=== PATIENT | female | born 1955 | race African-American/Black ===

== ENCOUNTER 2020-01-18 12:08 | Inpatient (IN) | payer OTHER, SELFPAY ==
[2020-01-18] MEDS ORDERED: ACETAMINOPHEN 325 MG TAB PO ONE (12:25)
[2020-01-18 13:44] LABS: Basophils % (Auto) 0.2 % (0.0-1.8); Eosinophils % (Auto) 0.6 % (0.0-4.3); Hematocrit 41.8 % (30.3-42.9); Hemoglobin 13.9 gm/dl (10.1-14.3); Lymphocytes # (Auto) 0.5 K/mm3 (1.2-5.4); Lymphocytes % (Auto) 7.1 % (13.4-35.0); Mean Corpuscular HGB Conc 33 % (30-34); Mean Corpuscular Volume 80 fl (79-97); Monocytes # (Auto) 0.4 K/mm3 (0.0-0.8); Platelet Count 348 K/mm3 (140-440); Red Blood Count 5.26 M/mm3 (3.65-5.03); Red Cell Distribution Width 12.9 % (13.2-15.2)
[2020-01-18 14:01] LABS: Alanine Aminotransferase 31 units/L (7-56); BUN/Creatinine Ratio 18; Blood Urea Nitrogen 14 mg/dL (7-17); Calcium 8.1 mg/dL (8.4-10.2); Hemolysis Index 12
--- NOTE | 2020-01-18 14:05 | XRay Report ---
CHEST 1 VIEW INDICATION / CLINICAL INFORMATION: hypoxia. COMPARISON: None available. FINDINGS: SUPPORT DEVICES: None. HEART / MEDIASTINUM: No significant abnormality. LUNGS / PLEURA: Scattered diffuse bilateral pulmonary opacities are noted. No pleural effusions. No p neumothorax. ADDITIONAL FINDINGS: No significant additional findings. IMPRESSION: 1. Scattered diffuse bilateral pulmonary opacities are noted. Infectious process leads the differenti al. Signer Name: Ozzy Nicole MD Signed: 01/18/2020 2:00 PM Workstation Name: [id number]
[2020-01-18] MEDS ORDERED: cefTRIAXone/NS 1 GM/50 ML 1 GM/50 ML BAG IV ONE (14:27)
[2020-01-18] MEDS ORDERED: dexAMETHasone 20 MG/5 ML VIAL IV ONE (14:27)
--- NOTE | 2020-01-18 14:36 | Emergency Department Report ---
HPI - General Chief Complaint: Dyspnea/Respdistress Time Seen by Provider: 01/18/20 12:13 - HPI HPI: This is a 64-year-old Tajik female who presents to the emergency department via EMS from home with complaint of shortness of breath and cough and was found to have low oxygen saturation. The patient has been having a mixed dry and productive cough for the past 10 days. Over the past 1 to 2 days the patient started having some shortness of breath that worsens with exertion. She denies any fever, chest pain, lower extremity swelling, but does complain of some increased fatigue. No recent travel or sick contacts at home. No known exposure to anyone with COVID-19. Patient does not speak much Bangladeshi so nurse Abby translated for us. EMS found the patient to have a low oxygen saturation at home and placed the patient on a nonrebreather. We once again tested the patient on room air here during triage and the patient was 84% oxygen satura tion. ED Past Medical Hx - Past Medical History Previous Medical History?: No - Surgical History Past Surgical History?: No - Social History Smoking Status: Unknown if ever smoked Substance Use Type: None ED Review of Systems ROS: Stated complaint: Other details as noted in HPI Comment: All other systems reviewed and negative Constitutional: other (fatigue). denies: fever Eyes: denies: eye pain, vision change ENT: denies: ear pain, throat pain Respiratory: cough, shortness of breath Cardiovascular: denies: chest pain, edema Gastrointestinal: denies: abdominal pain, vomiting Genitourinary: denies: dysuria, discharge Musculoskeletal: denies: back pain, joint swelling Skin: denies: rash, lesions Neurological: denies: headache, numbness Physical Exam - Physical Exam Vital Signs: Vital Signs 01/18/20 01/18/20 12:20 12:25 Temperature 99.3 F Pulse Rate 107 H Respiratory 20 20 Rate Blood Pressure 117/77 [Right] O2 Sat by Pulse 84 94 Oximetry Physical Exam: GENERAL: The patient is well-developed well-nourished. HENT: Normocephalic. Atraumatic. Patient has moist mucous membranes. EYES: Extraocular motions are intact. NECK: Supple. Trachea is midline. CHEST/LUNGS: A productive cough heard during examination. There is tachypnea. HEART/CARDIOVASCULAR: There is mild tachycardia. ABDOMEN: Abdomen is soft, nontender. There is no abdominal distention. SKIN: Skin is warm and dry. NEURO: The patient is awake, alert, and cooperative. The patient has no focal neurologic deficits. Normal speech. MUSCULOSKELETAL: There is no tenderness or deformity. There is no limitation range of motion. ED Course Vital Signs 01/18/20 01/18/20 12:20 12:25 Temperature 99.3 F Pulse Rate 107 H Respiratory 20 20 Rate Blood Pressure 117/77 [Right] O2 Sat by Pulse 84 94 Oximetry - Reevaluation(s) Reevaluation #1: 01/18/20 16:11 Lab Results 01/18/20 01/18/20 01/18/20 Range/Units 13:01 13:01 14:15 WBC 6.9 (4.5-11.0) K/mm3 RBC 5.26 H (3.65-5.03) M/mm3 Hgb 13.9 (10.1-14.3) gm/dl Hct 41.8 (30.3-42.9) % MCV 80 (79-97) fl MCH 26 L (28-32) pg MCHC 33 (30-34) % RDW 12.9 L (13.2-15.2) % Plt Count 348 (140-440) K/mm3 Lymph % (Auto) 7.1 L (13.4-35.0) % [place] % (Auto) 6.0 (0.0-7.3) % Eos % (Auto) 0.6 (0.0-4.3) % Baso % (Auto) 0.2 (0.0-1.8) % Lymph # (Auto) 0.5 L (1.2-5.4) K/mm3 [place] # (Auto) 0.4 (0.0-0.8) K/mm3 Eos # (Auto) 0.0 (0.0-0.4) K/mm3 Baso # (Auto) 0.0 (0.0-0.1) K/mm3 Seg Neutrophils % 86.1 H (40.0-70.0) % Seg Neutrophils # 6.0 (1.8-7.7) K/mm3 D-Dimer (0-234) ng/mlDDU Sodium 135 L (137-145) mmol/L Potassium 3.6 (3.6-5.0) mmol/L Chloride 98.9 (98-107) mmol/L Carbon Dioxide 23 (22-30) mmol/L Anion Gap 17 mmol/L BUN 14 (7-17) mg/dL Creatinine 0.8 (0.6-1.2) mg/dL Estimated GFR > 60 ml/min BUN/Creatinine Ratio 18 % Glucose 190 H (65-100) mg/dL Calcium 8.1 L (8.4-10.2) mg/dL Ferritin (10.0-200.0) ng/mL Total Bilirubin 0.60 (0.1-1.2) mg/dL AST 45 H (5-40) units/L ALT 31 (7-56) units/L Alkaline Phosphatase 86 (35-129) units/L Lactate Dehydrogenase (91-180) units/L Troponin T < 0.010 (0.00-0.029) ng/mL C-Reactive Protein (0.00-1.30) mg/dL NT-Pro-B Natriuret Pep 50.47 (0-900) pg/mL Total Protein 7.1 (6.3-8.2) g/dL Albumin 3.0 L (3.9-5) g/dL Albumin/Globulin Ratio 0.7 % 01/18/20 01/18/20 01/18/20 Range/Units 14:15 14:15 14:15 WBC (4.5-11.0) K/mm3 RBC (3.65-5.03) M/mm3 Hgb (10.1-14.3) gm/dl Hct (30.3-42.9) % MCV (79-97) fl MCH (28-32) pg MCHC (30-34) % RDW (13.2-15.2) % Plt Count (140-440) K/mm3 Lymph % (Auto) (13.4-35.0) % [place] % (Auto) (0.0-7.3) % Eos % (Auto) (0.0-4.3) % Baso % (Auto) (0.0-1.8) % Lymph # (Auto) (1.2-5.4) K/mm3 [place] # (Auto) (0.0-0.8) K/mm3 Eos # (Auto) (0.0-0.4) K/mm3 Baso # (Auto) (0.0-0.1) K/mm3 Seg Neutrophils % (40.0-70.0) % Seg Neutrophils # (1.8-7.7) K/mm3 D-Dimer 754.44 H (0-234) ng/mlDDU Sodium (137-145) mmol/L Potassium (3.6-5.0) mmol/L Chloride (98-107) mmol/L Carbon Dioxide (22-30) mmol/L Anion Gap mmol/L BUN (7-17) mg/dL Creatinine (0.6-1.2) mg/dL Estimated GFR ml/min BUN/Creatinine Ratio % Glucose 127 H (65-100) mg/dL Calcium (8.4-10.2) mg/dL Ferritin 1542.0 H (10.0-200.0) ng/mL Total Bilirubin (0.1-1.2) mg/dL AST (5-40) units/L ALT (7-56) units/L Alkaline Phosphatase (35-129) units/L Lactate Dehydrogenase 608 H (91-180) units/L Troponin T (0.00-0.029) ng/mL C-Reactive Protein 7.80 H (0.00-1.30) mg/dL NT-Pro-B Natriuret Pep (0-900) pg/mL Total Protein (6.3-8.2) g/dL Albumin (3.9-5) g/dL Albumin/Globulin Ratio % ED Medical Decision Making - Lab Data Result diagrams: 01/18/20 13:01 01/18/20 14:15 - Radiology Data Radiology results: image reviewed interpreted by me: Chest x-ray has bilateral patchy infiltrates concerning for pneumonia. - Medical Decision Making This patient presents with a lingering cough and now a few days of shortness of breath that worsens on exertion. Patient was found to be hypoxic on room air at 84%. She was placed on a nonrebreather and improved into the mid to high 90s. We will titrate back to a Venturi mask or nasal cannula. Chest x-ray shows bilateral patchy infiltrates concerning for pneumonia. Patient's labs shows no leukocytosis but there is lymphopenia. Patient has elevated inflammatory markers such as D-dimer, CRP, LDH and ferritin. All this together appears concerning for COVID-19. The patient has been in droplet precautions and patient isolation since arrival to the emergency department. She will be admitted to the hospital for further evaluation and treatment and was accepted for admission by the hospitalist, Dr. Hooper. Critical Care Time: Yes Critical care time in (mins) excluding proc time.: 35 Critical care attestation.: If time is entered above; I have spent that time in minutes in the direct care of this critically ill patient, excluding procedure time. Critical care time was spent on this patient in doing her initial evaluation, multiple reevaluati ons, ordering and interpretation of labs and imaging, treatment of her pneumonia with IV antibiotics, oxygen supplementation for the hypoxemia, discussion with the hospitalist service. Critical Care Time: 35 minutes ED Disposition Clinical Impression: Suspected 2019 novel coronavirus infection, Hypoxemia Pneumonia Qualifiers: Pneumonia type: due to unspecified organism Laterality: bilateral Lung location: unspecified part of lung Qualified Code(s): J18.9 - Pneumonia, unspecified organism Disposition: 09 OP ADMIT IP TO THIS HOSP Is pt being admited?: Yes Condition: Serious Time of Disposition: 14:57
[2020-01-18] MEDS ORDERED: AZITHROMYCIN 500 MG in SODIUM CHLORIDE 0.9% 250ML 250 ML IV ONE (15:00)
[2020-01-18 15:26] LABS: C-Reactive Protein 7.8 mg/dL (0.00-1.30)
--- NOTE | 2020-01-18 16:50 | History and Physical Report ---
History of Present Illness Date of examination: 01/18/20 Date of admission: 01/18/20 14:58 Chief complaint: SOB for 2 days History of present illness: This is a 64-year-old Uz[place] female who presents to the emergency department via EMS from home with complaint of shortness of breath and cough and was found to have low oxygen saturation. The patient has been having a mixed dry and productive cough for the past 10 days. Over the past 1 to 2 days the patient started having some shortness of breath that worsens with exertion. She denies any fever, chest pain, lower extremity swelling, but does complain of some increased fatigue. No recent travel or sick contacts at home. No known exposure to anyone with COVID-19. Patient does not speak much [place] African so nurse Abby translated for us. EMS found the patient to have a low oxygen saturation at home and placed the patient on a nonrebreather. We once again tested the patient on room air here during triage and the patient was 84% oxygen saturation. - Past Medical History Previous Medical History?: No - Surgical History Past Surgical History?: No - Social History Smoking Status: Unknown if ever smoked Substance Use Type: N Review of Systems ROS: Stated complaint: Other details as noted in HPI Comment: All other systems reviewed and negative Constitutional: other (fatigue). denies: fever Eyes: denies: eye pain, vision change ENT: denies: ear pain, throat pain Respiratory: cough, shortness of breath Cardiovascular: denies: chest pain, edema Gastrointestinal: denies: abdominal pain, vomiting Genitourinary: denies: dysuria, discharge Musculoskeletal: denies: back pain, joint swelling Skin: denies: rash, lesions Neurological: denies: headache, numbness Medications and Allergies Allergies Allergy/AdvReac Type Severity Reaction Status Date / Time No Known Allergies Allergy Unverified 01/18/20 17:58 Home Medications Medication Instructions Recorded Confirmed Last Taken Type No Known Home Medications [No 01/18/20 01/18/20 Unknown History Reported Home Medications] Exam - Constitutional Vitals: Temp Pulse Resp BP Pulse Ox 99.3 F 107 H 20 117/77 94 01/18/20 12:20 01/18/20 12:20 01/18/20 12:25 01/18/20 12:20 01/18/20 12:25 General appearance: Present: mild distress, well-nourished - EENT Eyes: Present: PERRL ENT: hearing intact, clear oral mucosa - Neck Neck: Present: supple, normal ROM - Respiratory Respiratory effort: normal Respiratory: bilateral: CTA, rhonchi, wheezing - Cardiovascular Heart rate: 88 Rhythm: regular Heart Sounds: Present: S1 & S2. Absent: rub, click - Extremities Extremities: no ischemia, pulses intact, pulses symmetrical, No edema Peripheral Pulses: within normal limits - Abdominal General gastrointestinal: Present: soft, non-tender, non-distended, normal bowel sounds Female genitourinary: Present: normal - Rectal Rectal Exam: deferred - Integumentary Integumentary: Present: clear, warm, dry - Musculoskeletal Musculoskeletal: gait normal, strength equal bilaterally - Psychiatric Psychiatric: appropriate mood/affect, intact judgment & insight - Neurologic Neurologic: CNII-XII intact, moves all extremities - Allied Health Allied health notes reviewed: nursing, case management HEART Score - HEART Score Troponin: Troponin T < 0.010 ng/mL (0.00-0.029) 01/18/20 14:15 Results - Labs CBC & Chem 7: 01/18/20 13:01 01/18/20 14:15 Labs: Laboratory Last Values WBC 6.9 K/mm3 (4.5-11.0) 01/18/20 13:01 RBC 5.26 M/mm3 (3.65-5.03) H 01/18/20 13:01 Hgb 13.9 gm/dl (10.1-14.3) 01/18/20 13:01 Hct 41.8 % (30.3-42.9) 01/18/20 13:01 MCV 80 fl (79-97) 01/18/20 13:01 MCH 26 pg (28-32) L 01/18/20 13:01 MCHC 33 % (30-34) 01/18/20 13:01 RDW 12.9 % (13.2-15.2) L 01/18/20 13:01 Plt Count 348 K/mm3 (140-440) 01/18/20 13:01 Lymph % (Auto) 7.1 % (13.4-35.0) L 01/18/20 13:01 [place] % (Auto) 6.0 % (0.0-7.3) 01/18/20 13:01 Eos % (Auto) 0.6 % (0.0-4.3) 01/18/20 13:01 Baso % (Auto) 0.2 % (0.0-1.8) 01/18/20 13:01 Lymph # (Auto) 0.5 K/mm3 (1.2-5.4) L 01/18/20 13:01 [place] # (Auto) 0.4 K/mm3 (0.0-0.8) 01/18/20 13:01 Eos # (Auto) 0.0 K/mm3 (0.0-0.4) 01/18/20 13:01 Baso # (Auto) 0.0 K/mm3 (0.0-0.1) 01/18/20 13:01 Seg Neutrophils % 86.1 % (40.0-70.0) H 01/18/20 13:01 Seg Neutrophils # 6.0 K/mm3 (1.8-7.7) 01/18/20 13:01 D-Dimer 754.44 ng/mlDDU (0-234) H 01/18/20 14:15 Sodium 135 mmol/L (137-145) L 01/18/20 13:01 Potassium 3.6 mmol/L (3.6-5.0) 01/18/20 13:01 Chloride 98.9 mmol/L (98-107) 01/18/20 13:01 Carbon Dioxide 23 mmol/L (22-30) 01/18/20 13:01 Anion Gap 17 mmol/L 01/18/20 13:01 BUN 14 mg/dL (7-17) 01/18/20 13:01 Creatinine 0.8 mg/dL (0.6-1.2) 01/18/20 13:01 Estimated GFR > 60 ml/min 01/18/20 13:01 BUN/Creatinine Ratio 18 % 01/18/20 13:01 Glucose 127 mg/dL (65-100) H 01/18/20 14:15 Calcium 8.1 mg/dL (8.4-10.2) L 01/18/20 13:01 Ferritin 1542.0 ng/mL (10.0-200.0) H 01/18/20 14:15 Total Bilirubin 0.60 mg/dL (0.1-1.2) 01/18/20 13:01 AST 45 units/L (5-40) H 01/18/20 13:01 ALT 31 units/L (7-56) 01/18/20 13:01 Alkaline Phosphatase 86 units/L (35-129) 01/18/20 13:01 Lactate Dehydrogenase 608 units/L (91-180) H 01/18/20 14:15 Troponin T < 0.010 ng/mL (0.00-0.029) 01/18/20 14:15 C-Reactive Protein 7.80 mg/dL (0.00-1.30) H 01/18/20 14:15 NT-Pro-B Natriuret Pep 50.47 pg/mL (0-900) 01/18/20 14:15 Total Protein 7.1 g/dL (6.3-8.2) 01/18/20 13:01 Albumin 3.0 g/dL (3.9-5) L 01/18/20 13:01 Albumin/Globulin Ratio 0.7 % 01/18/20 13:01 Microbiology: Microbiology 01/18/20 14:15 Peripheral/Venous Blood Culture - Preliminary Culture in Progress 01/18/20 14:15 Peripheral/Venous Blood Culture - Preliminary Culture in Progress - Imaging and Cardiology Chest x-ray: report reviewed (Bilateral pneumonia) Imaging and Cardiology: CXR IMPRESSION: 1. Scattered diffuse bilateral pulmonary opacities are noted. Infectious process leads the differential. Assessment and Plan Advance Directives: Yes (Full code) VTE prophylaxis?: Chemical Plan of care discussed with patient/family: Yes - Patient Problems (1) Respiratory failure with hypoxia Current Visit: Yes Status: Acute Qualifiers: Chronicity: acute Qualified Code(s): J96.01 - Acute respiratory failure with hypoxia Plan to address problem: o2 supplementation as necessary IV abx and IV decadron (2) Suspected 2019 novel coronavirus infection Current Visit: Yes Status: Acute Plan to address problem: Coronavirus pcr pending Isolation (3) Bilateral pneumonia Current Visit: Yes Status: Acute Qualifiers: Lung location: unspecified part of lung Plan to address problem: Bilateral pneumonia in favor of coronavirus (4) Elevated d-dimer Current Visit: Yes Status: Acute Plan to address problem: lovenox 50 units q12h (5) Malnutrition Current Visit: Yes Status: Chronic Qualifiers: Protein-calorie malnutrition severity: moderate Plan to address problem: Albumin 3.0 Diet supplements (6) Transaminitis Current Visit: Yes Status: Acute Plan to address problem: Mild Probably sec to covid (7) DVT prophylaxis Current Visit: Yes Status: Acute Plan to address problem: On Lovenox and GI prophylaxis
[2020-01-18] MEDS ORDERED: HYDROmorphone 1 MG/1 ML INJ IV PRN (17:30)
[2020-01-18] MEDS ORDERED: ONDANSETRON 4 MG/2 ML INJ IV PRN (17:30)
[2020-01-18] MEDS ORDERED: ACETAMINOPHEN 325 MG TAB PO PRN (17:30)
[2020-01-18] MEDS ORDERED: dexAMETHasone 4 MG/ML VIAL IV SCH (18:00)
[2020-01-18] MEDS ORDERED: oxyCODONE /ACETAMINOPHEN 5-325MG TAB PO PRN (18:00)
[2020-01-18] MEDS: FAMOTIDINE 20 MG TAB PO SCH (21:42)
[2020-01-19] MEDS ORDERED: ENOXAPARIN 40 MG/0.4 ML INJ SUB-Q SCH (08:00)
[2020-01-19] MEDS ORDERED: AZITHROMYCIN 250 MG TAB PO SCH (10:00)
[2020-01-19] MEDS ORDERED: AZITHROMYCIN 500 MG in SODIUM CHLORIDE 0.9% 250ML 250 ML IV SCH (10:00)
[2020-01-19] MEDS ORDERED: cefTRIAXone/NS 2 GM/100 ML 2 GM/100 ML BAG IV SCH (11:00)
[2020-01-19] MEDS ORDERED: guaiFENesin DM 200/20 MG ORAL LIQD 10 ML PO PRN (12:06)
[2020-01-19] MEDS: FAMOTIDINE 20 MG TAB PO SCH ×2 (12:42→22:02)
[2020-01-19] MEDS: DEXAMETHASONE 4 MG TAB PO SCH (12:42)
[2020-01-19] MEDS: ENOXAPARIN 60 MG/0.6 ML INJ SUB-Q SCH ×2 (12:43→22:01)
--- NOTE | 2020-01-19 15:00 | Consultation ---
History of Present Illness - Reason for Consult Consult date: 01/19/20 COVID-19 Requesting physician: DARSHANA JOVEL - History of Present Illness The patient is a 64-year-old female admitted to the hospital with cough and shortness of breath worsening for the last 2 days. Cough has been present for 10 days. She was noted to be hypoxic with chest x-ray showing bilateral pneumonia. She tested positive for COVID-19, infectious diseases was consulted for additional evaluation. She is otherwise afebrile. On oxygen by nasal cannula. Review of Systems: reviewed in the chart, unable to obtain directly due to PPE preservation and minimize risk of transmission Medications and Allergies Allergies Allergy/AdvReac Type Severity Reaction Status Date / Time No Known Allergies Allergy Unverified 01/18/20 17:58 Home Medications Medication Instructions Recorded Confirmed Last Taken Type No Known Home Medications [No 01/18/20 01/18/20 Unknown History Reported Home Medications] Active Meds: Active Medications Acetaminophen (Tylenol) 650 mg PO Q4H PRN PRN Reason: Pain MILD(1-3)/Fever >100.5/[place] Dexamethasone (Decadron) 6 mg PO DAILY [facility] Stop: 01/27/20 10:01 Last Admin: 01/19/20 12:42 Dose: 6 mg Documented by: Enoxaparin Sodium (Enoxaparin) 50 mg SUB-Q Q12HR [facility] Last Admin: 01/19/20 12:43 Dose: 50 mg Documented by: Famotidine (Pepcid) 20 mg PO BID [facility] Last Admin: 01/19/20 12:42 Dose: 20 mg Documented by: Guaifenesin (Guaifenesin Dm Syrup) 10 ml PO TID PRN PRN Reason: Cough Last Admin: 01/19/20 14:17 Dose: 10 ml Documented by: Hydromorphone HCl (Dilaudid) 0.5 mg IV Q3H PRN PRN Reason: Pain , Severe (7-10) REMDESIVIR 200 mg/ Sodium (Chloride) 250 mls @ 500 mls/hr IV ONCE ONE Stop: 01/19/20 15:25 REMDESIVIR 100 mg/ Sodium (Chloride) 250 mls @ 500 mls/hr IV Q24HR@2100 [facility] Stop: 01/23/20 21:29 Ondansetron HCl (Zofran) 4 mg IV Q8H PRN PRN Reason: Nausea And Vomiting Oxycodone/Acetaminophen (Percocet 5/325) 1 tab PO Q6H PRN PRN Reason: Pain, Moderate (4-6) Sodium Chloride (Sodium Chloride Flush Syringe 10 Ml) 10 ml IV BID [facility] Last Admin: 01/19/20 12:43 Dose: 10 ml Documented by: Sodium Chloride (Sodium Chloride Flush Syringe 10 Ml) 10 ml IV PRN PRN PRN Reason: LINE FLUSH Sodium Chloride (Nacl 0.9%) 50 ml IV Q24H [facility] Stop: 01/23/20 15:01 Physical Examination - Physical Exam Narrative exam: Physical Exam (reviewed in chart due to PPE conservation and minimize risk of transmission) Constitutional: limited due to PPE conservation strategy Head, Ears, Nose: limited due to PPE conservation strategy Eyes: limited due to PPE conservation strategy Neck: limited due to PPE conservation strategy Oral: limited due to PPE conservation strategy Cardiovascular: limited due to PPE conservation strategy Respiratory: limited due to PPE conservation strategy GI: limited due to PPE conservation strategy Musculoskeletal: limited due to PPE conservation strategy Skin: limited due to PPE conservation strategy Hem/Lymphatic: limited due to PPE conservation strategy Psych: limited due to PPE conservation strategy Neurological: limited due to PPE conservation strategy - Constitutional Vitals: Vital Signs Temp Pulse Resp BP Pulse Ox 97.6 F 72 16 122/74 92 01/19/20 04:28 01/19/20 04:28 01/19/20 04:28 01/19/20 04:28 01/19/20 04:28 Temperature -Last 24 Hours Temperature 97.6 F Temperature 98.1 F Results - Labs CBC & Chem 7: 01/18/20 13:01 01/18/20 14:15 Labs: Abnormal lab results 01/18/20 01/18/20 01/18/20 Range/Units 14:15 14:15 14:15 D-Dimer 754.44 H (0-234) ng/mlDDU Glucose 127 H (65-100) mg/dL Ferritin 1542.0 H (10.0-200.0) ng/mL Lactate Dehydrogenase 608 H (91-180) units/L C-Reactive Protein 7.80 H (0.00-1.30) mg/dL Coronavirus (PCR) (Negative) 01/19/20 Range/Units Unknown D-Dimer (0-234) ng/mlDDU Glucose (65-100) mg/dL Ferritin (10.0-200.0) ng/mL Lactate Dehydrogenase (91-180) units/L C-Reactive Protein (0.00-1.30) mg/dL Coronavirus (PCR) Positive A (Negative) - Imaging and Cardiology Chest x-ray: report reviewed, image reviewed (b/l pneumonia) Assessment and Plan Cultures: SARS CoV2 PCR: Positive A/P: 64-year-old female with: #Bilateral pneumonia: Secondary to COVID-19. Elevated inflammatory markers. Procalcitonin is low. #Acute hypoxic respiratory failure: On oxygen #Transaminitis: Likely secondary to COVID-19. Recs: IV/PO Dexamethasone 6 mg daily x 10 days Ordered IV remdesivir, day 1 prophylactic anticoagulation based on d-dimer per hospital protocol trend ferritin, LDH, d-dimer, CRP every 2-3 days for risk stratification and to assess disease progression Procalcitonin is low, antibiotics not needed Mike Tatum MD, FACP [facility] ([facility] O: [phone] F: [phone]
[2020-01-19 16:12] LABS: Hematocrit 43.5 % (30.3-42.9); Hemoglobin 14.3 gm/dl (10.1-14.3); Mean Corpuscular HGB Conc 33 % (30-34); Mean Corpuscular Volume 81 fl (79-97); Platelet Count 323 K/mm3 (140-440); Red Blood Count 5.41 M/mm3 (3.65-5.03); Red Cell Distribution Width 12.8 % (13.2-15.2)
[2020-01-19 16:25] LABS: Alanine Aminotransferase 34 units/L (7-56); BUN/Creatinine Ratio 21; Blood Urea Nitrogen 17 mg/dL (7-17); Calcium 8.3 mg/dL (8.4-10.2); Hemolysis Index 6
--- NOTE | 2020-01-19 16:59 | Progress Note ---
Assessment and Plan - Patient Problems (1) Pneumonia due to 2019 novel coronavirus Current Visit: Yes Status: Acute Plan to address problem: 01/17 CXR shows scattered diffuse bilateral pulmonary opacities 01/18 COVID-19 PCR positive Infectious disease consulted S/p azithromycin and Rocephin which were discontinued given normal procalcitonin 01/18 initiated on remdesivir therapy by ID (01/18 through 01/22 S/p dexamethasone 10 mg in the ED Dexamethasone 6 mg p.o. daily for 9 days (01/18 through 01/26) Trend Covid anti-inflammatory markers Anticoagulation per COVID-19 protocol OOB 3 times daily Pulmonary hygiene Supplemental oxygen as needed (2) Elevated d-dimer Current Visit: Yes Status: Acute Plan to address problem: Presented with a D-dimer of 754.44 Anticoagulation per COVID-19 protocol 01/18 bilateral lower extremity venous Dopplers pending Trend D-dimer (3) Respiratory failure with hypoxia Current Visit: Yes Status: Acute Qualifiers: Chronicity: acute Qualified Code(s): J96.01 - Acute respiratory failure with hypoxia Plan to address problem: Presented with hypoxia with SPO2 into the 80s Supplemental oxygenation as needed Pulmonary hygiene Continuous SPO2 monitoring (4) Transaminitis Current Visit: Yes Status: Resolved Plan to address problem: Presented with AST 45, ALT 31, alk phos 86 01/18 AST 34, ALT 34, alk phos 80 Secondary to COVID-19 infection (5) Malnutrition Current Visit: Yes Status: Chronic Qualifiers: Protein-calorie malnutrition severity: moderate Plan to address problem: Nutrition consult Caloric supplementation with every meal (6) Hypokalemia Current Visit: Yes Status: Acute Plan to address problem: 01/18 potassium 3.2 Supplemented Trend BMP supplement as needed (7) Diabetes Current Visit: Yes Status: Acute Plan to address problem: 01/18 hemoglobin A1c 9.1 SSI CC diet Accu-Cheks AC at bedtime 01/18 Novolin 70/30 2 units twice daily Increase physical activity and dietary modifications on outpatient Follow-up with PCP (8) DVT prophylaxis Current Visit: Yes Status: Acute Plan to address problem: GI prophylaxis DVT prophylaxis with Lovenox subcu SCDs bilateral extremities while in bed History Interval history: This is a 64-year-old female presented to the emergency department on 01/08 via EMS with complaints of shortness of breath and cough over the past 10 days with fatigue. EMS found her to be hypoxic on arrival and was placed on a nonrebreather however on triage she was found to have SPO2 of 84%. Work-up in the emergency department included a CXR which showed scattered diffuse bilateral pulmonary opacities, elevated D-dimer 754, hyponatremia at 135, elevated COVID- 19 markers with a normal procalcitonin. This morning patient is hypokalemic at 3.2 and has slight metabolic acidosis at CO2 20. Her hemoglobin A1c resulted at 9.4 and she was initiated on 2 units of Novolin 70/30 twice daily. Today her COVID-19 PCR resulted as positive. Patient is still on supplemental oxygenation at this time. Infectious disease initiated her on remdesivir therapy today. Hospitalist Physical - Constitutional Vitals: Temp Pulse Resp BP Pulse Ox 98.2 F 84 18 129/72 93 01/19/20 12:36 01/19/20 12:36 01/19/20 12:36 01/19/20 12:36 01/19/20 12:36 General appearance: Present: well-nourished - EENT Eyes: Present: PERRL, EOM intact ENT: hearing intact, clear oral mucosa - Neck Neck: Present: supple, normal ROM - Respiratory Respiratory effort: normal Respiratory: bilateral: diminished - Cardiovascular Rhythm: regular Heart Sounds: Present: S1 & S2. Absent: systolic murmur, diastolic murmur - Extremities Extremities: no ischemia, pulses intact, pulses symmetrical, No edema, normal temperature, normal color, Full ROM - Abdominal General gastrointestinal: soft, non-tender, non-distended, normal bowel sounds - Integumentary Integumentary: Present: clear, dry - Psychiatric Psychiatric: appropriate mood/affect, cooperative - Neurologic Neurologic: CNII-XII intact, no focal deficits, moves all extremities HEART Score - HEART Score Troponin: Troponin T < 0.010 ng/mL (0.00-0.029) 01/18/20 14:15 Results - Labs CBC & Chem 7: 01/19/20 15:34 01/19/20 15:34 Labs: Laboratory Last Values WBC 10.1 K/mm3 (4.5-11.0) 01/19/20 15:34 RBC 5.41 M/mm3 (3.65-5.03) H 01/19/20 15:34 Hgb 14.3 gm/dl (10.1-14.3) 01/19/20 15:34 Hct 43.5 % (30.3-42.9) H 01/19/20 15:34 MCV 81 fl (79-97) 01/19/20 15:34 MCH 27 pg (28-32) L 01/19/20 15:34 MCHC 33 % (30-34) 01/19/20 15:34 RDW 12.8 % (13.2-15.2) L 01/19/20 15:34 Plt Count 323 K/mm3 (140-440) 01/19/20 15:34 Lymph % (Auto) Well Drill Operator 01/19/20 15:34 Hand % (Auto) Well Drill Operator 01/19/20 15:34 Eos % (Auto) Well Drill Operator 01/19/20 15:34 Baso % (Auto) Well Drill Operator 01/19/20 15:34 Lymph # (Auto) Well Drill Operator 01/19/20 15:34 Hand # (Auto) Well Drill Operator 01/19/20 15:34 Eos # (Auto) Well Drill Operator 01/19/20 15:34 Baso # (Auto) Well Drill Operator 01/19/20 15:34 Seg Neutrophils % Well Drill Operator 01/19/20 15:34 Seg Neutrophils # Well Drill Operator 01/19/20 15:34 D-Dimer 754.44 ng/mlDDU (0-234) H 01/18/20 14:15 Sodium 141 mmol/L (137-145) 01/19/20 15:34 Potassium 3.2 mmol/L (3.6-5.0) L 01/19/20 15:34 Chloride 104.9 mmol/L (98-107) 01/19/20 15:34 Carbon Dioxide 20 mmol/L (22-30) L 01/19/20 15:34 Anion Gap 19 mmol/L 01/19/20 15:34 BUN 17 mg/dL (7-17) 01/19/20 15:34 Creatinine 0.8 mg/dL (0.6-1.2) 01/19/20 15:34 Estimated GFR > 60 ml/min 01/19/20 15:34 BUN/Creatinine Ratio 21 % 01/19/20 15:34 Glucose 268 mg/dL (65-100) H 01/19/20 15:34 Hemoglobin A1c 9.4 % (4-6) H 01/19/20 15:34 Calcium 8.3 mg/dL (8.4-10.2) L 01/19/20 15:34 Ferritin 1542.0 ng/mL (10.0-200.0) H 01/18/20 14:15 Total Bilirubin 0.20 mg/dL (0.1-1.2) 01/19/20 15:34 AST 34 units/L (5-40) 01/19/20 15:34 ALT 34 units/L (7-56) 01/19/20 15:34 Alkaline Phosphatase 80 units/L (35-129) 01/19/20 15:34 Lactate Dehydrogenase 608 units/L (91-180) H 01/18/20 14:15 Troponin T < 0.010 ng/mL (0.00-0.029) 01/18/20 14:15 C-Reactive Protein 7.80 mg/dL (0.00-1.30) H 01/18/20 14:15 NT-Pro-B Natriuret Pep 50.47 pg/mL (0-900) 01/18/20 14:15 Total Protein 6.9 g/dL (6.3-8.2) 01/19/20 15:34 Albumin 3.0 g/dL (3.9-5) L 01/19/20 15:34 Albumin/Globulin Ratio 0.8 % 01/19/20 15:34 Procalcitonin < 0.05 ng/mL (<0.15) 01/18/20 14:15 Coronavirus (PCR) Positive (Negative) A 01/19/20 Unknown Microbiology: Microbiology 01/18/20 14:15 Peripheral/Venous Blood Culture - Preliminary NO GROWTH AFTER 24 HOURS 01/18/20 14:15 Peripheral/Venous Blood Culture - Preliminary NO GROWTH AFTER 24 HOURS Moore/IV: Voiding Method Toilet IV Catheter Type [Right INT / Saline Lock Antecubital] Active Medications - Current Medications Current Medications: Generic Name Dose Route Start Last Admin Trade Name Freq PRN Reason Stop Dose Admin Acetaminophen 650 mg 01/18/20 17:30 Tylenol PO Q4H PRN Pain MILD(1-3)/Fever >100.5/URBANO Dexamethasone 6 mg 01/19/20 10:00 01/19/20 12:42 Decadron PO 01/27/20 10:01 6 mg DAILY FREDERICK Administration Enoxaparin Sodium 50 mg 01/19/20 10:00 01/19/20 12:43 Enoxaparin SUB-Q 50 mg Q12HR FREDERICK Administration Famotidine 20 mg 01/18/20 22:00 01/19/20 12:42 Pepcid PO 20 mg BID FREDERICK Administration Guaifenesin 10 ml 01/19/20 12:06 01/19/20 14:17 Guaifenesin Dm Syrup PO 10 ml TID PRN Administration Cough Hydromorphone HCl 0.5 mg 01/18/20 17:30 Dilaudid IV Q3H PRN Pain , Severe (7-10) REMDESIVIR 200 mg/ Sodium 250 mls @ 500 mls/hr 01/19/20 17:00 Chloride IV 01/19/20 17:29 ONCE ONE REMDESIVIR 100 mg/ Sodium 250 mls @ 500 mls/hr 01/20/20 21:00 Chloride IV 01/23/20 21:29 Q24HR@2100 COUNT INCLUDES THE [facility] Ondansetron HCl 4 mg 01/18/20 17:30 Zofran IV Q8H PRN Nausea And Vomiting Oxycodone/Acetaminophen 1 tab 01/18/20 18:00 Percocet 5/325 PO Q6H PRN Pain, Moderate (4-6) Sodium Chloride 10 ml 01/18/20 22:00 01/19/20 12:43 Sodium Chloride Flush Syringe 10 Ml IV 10 ml BID FREDERICK Administration Sodium Chloride 10 ml 01/18/20 18:00 Sodium Chloride Flush Syringe 10 Ml IV PRN PRN LINE FLUSH Sodium Chloride 50 ml 01/19/20 17:00 Nacl 0.9% IV 01/23/20 21:01 Q24HR@2100 COUNT INCLUDES THE [facility]
[2020-01-19] MEDS ORDERED: REMDESIVIR 200 MG in SODIUM CHLORIDE 0.9% 250ML 250 ML IV ONE (17:00)
[2020-01-19] MEDS ORDERED: REMDESIVIR 100 MG VIAL IV ONE ×2 (17:00)
[2020-01-19] MEDS: SODIUM CHLORIDE 0.9% 50 ML IVPB IV SCH (17:05)
[2020-01-19] MEDS ORDERED: DEXTROSE 50% IN WATER (25GM) 50 ML SYRINGE IV PRN (17:07)
[2020-01-19] MEDS ORDERED: INSULIN NPH/REGULAR 70/30 INJ SUB-Q SCH (17:30)
[2020-01-19] MEDS ORDERED: POTASSIUM CHLORIDE 20 MEQ PACKET FEEDTUBE ONE (17:30)
[2020-01-19] MEDS: INSULIN LISPRO 100 UNIT/ML VIAL 3 mL SUB-Q SCH (22:02)
[2020-01-20] MEDS: INSULIN LISPRO 100 UNIT/ML VIAL 3 mL SUB-Q SCH ×4 (09:21→23:02)
[2020-01-20] MEDS: amLODIPine 5 MG TAB PO SCH (09:24)
[2020-01-20] MEDS: FAMOTIDINE 20 MG TAB PO SCH ×2 (09:24→22:08)
[2020-01-20] MEDS: ENOXAPARIN 60 MG/0.6 ML INJ SUB-Q SCH ×2 (09:25→22:08)
[2020-01-20] MEDS: DEXAMETHASONE 4 MG TAB PO SCH (09:25)
[2020-01-20] MEDS: INSULIN NPH/REGULAR 70/30 INJ SUB-Q SCH ×2 (09:57→17:24)
[2020-01-20 10:21] LABS: BUN/Creatinine Ratio 18; Blood Urea Nitrogen 14 mg/dL (7-17); Calcium 8.2 mg/dL (8.4-10.2); Hemolysis Index 4
--- NOTE | 2020-01-20 14:59 | Progress Note ---
Assessment and Plan Cultures: SARS CoV2 PCR: Positive A/P: 64-year-old female with: #Bilateral pneumonia: Secondary to COVID-19. Elevated inflammatory markers. Procalcitonin is low. #Acute hypoxic respiratory failure: On oxygen #Transaminitis: Likely secondary to COVID-19. Recs: continue IV/PO Dexamethasone 6 mg daily x 10 days continue IV remdesivir, day 2 weaned off oxygen, get ambulatory sats and consider discharge. No need to finish the full Remdesivir course. D/W Dr. Kelly. Mike Tatum MD, FACP [facility] ([facility]) O: [phone] F: [phone] Subjective Date of service: 01/20/20 Interval history: No fever. Weaned off oxygen. Objective - Exam Narrative Exam: Physical Exam (reviewed in chart due to PPE conservation and minimize risk of transmission) Constitutional: limited due to PPE conservation strategy Head, Ears, Nose: limited due to PPE conservation strategy Eyes: limited due to PPE conservation strategy Neck: limited due to PPE conservation strategy Oral: limited due to PPE conservation strategy Cardiovascular: limited due to PPE conservation strategy Respiratory: limited due to PPE conservation strategy GI: limited due to PPE conservation strategy Musculoskeletal: limited due to PPE conservation strategy Skin: limited due to PPE conservation strategy Hem/Lymphatic: limited due to PPE conservation strategy Psych: limited due to PPE conservation strategy Neurological: limited due to PPE conservation strategy - Constitutional Vitals: Vital Signs Temp Pulse Resp BP Pulse Ox 98.1 F 83 17 132/81 94 01/20/20 12:41 01/20/20 12:41 01/20/20 12:41 01/20/20 12:41 01/20/20 12:41 Temperature -Last 24 Hours Temperature 98.1 F Temperature 97.9 F Temperature 98.4 F Temperature 98 F - Labs CBC & Chem 7: 01/19/20 15:34 01/20/20 08:40 Labs: Abnormal lab results 01/19/20 01/19/20 01/19/20 Range/Units 15:34 15:34 15:34 RBC 5.41 H (3.65-5.03) M/mm3 Hct 43.5 H (30.3-42.9) % MCH 27 L (28-32) pg RDW 12.8 L (13.2-15.2) % Potassium 3.2 L (3.6-5.0) mmol/L Carbon Dioxide 20 L (22-30) mmol/L Glucose 268 H (65-100) mg/dL POC Glucose (70-105) mg/dL Hemoglobin A1c 9.4 H (4-6) % Calcium 8.3 L (8.4-10.2) mg/dL Albumin 3.0 L (3.9-5) g/dL 01/19/20 01/20/20 01/20/20 Range/Units 22:09 08:40 12:40 RBC (3.65-5.03) M/mm3 Hct (30.3-42.9) % MCH (28-32) pg RDW (13.2-15.2) % Potassium (3.6-5.0) mmol/L Carbon Dioxide (22-30) mmol/L Glucose 169 H (65-100) mg/dL POC Glucose 200 H 151 H (70-105) mg/dL Hemoglobin A1c (4-6) % Calcium 8.2 L (8.4-10.2) mg/dL Albumin (3.9-5) g/dL
--- NOTE | 2020-01-20 16:25 | Progress Note ---
Assessment and Plan - Patient Problems (1) Pneumonia due to 2019 novel coronavirus Current Visit: Yes Status: Acute Plan to address problem: 01/17 CXR shows scattered diffuse bilateral pulmonary opacities 01/18 COVID-19 PCR positive Infectious disease consulted S/p azithromycin and Rocephin which were discontinued given normal procalcitonin 01/18 initiated on remdesivir therapy by ID (01/18 through 01/22 S/p dexamethasone 10 mg in the ED Dexamethasone 6 mg p.o. daily for 9 days (01/18 through 01/26) Trend Covid inflammatory markers Anticoagulation per COVID-19 protocol OOB 3 times daily Pulmonary hygiene Supplemental oxygen as needed (2) Elevated d-dimer Current Visit: Yes Status: Acute Plan to address problem: Presented with a D-dimer of 754.44 Anticoagulation per COVID-19 protocol 01/18 bilateral lower extremity venous Dopplers pending Trend D-dimer (3) Respiratory failure with hypoxia Current Visit: Yes Status: Acute Qualifiers: Chronicity: acute Qualified Code(s): J96.01 - Acute respiratory failure with hypoxia Plan to address problem: Presented with hypoxia with SPO2 into the 80s Supplemental oxygenation as needed Pulmonary hygiene Continuous SPO2 monitoring (4) Malnutrition Current Visit: Yes Status: Chronic Qualifiers: Protein-calorie malnutrition severity: moderate Plan to address problem: Nutrition consult Caloric supplementation with every meal (5) Hypokalemia Current Visit: Yes Status: Resolved Plan to address problem: 01/18 potassium 3.2 Supplemented Trend BMP supplement as needed 01/19 potassium 4 (6) Diabetes Current Visit: Yes Status: Acute Plan to address problem: 01/18 hemoglobin A1c 9.1 SSI CC diet Accu-Cheks AC at bedtime 01/18 Novolin 70/30 2 units twice daily 01/19 Novolin 70/30 increased to 4 units twice daily Increase physical activity and dietary modifications on outpatient Follow-up with PCP (7) DVT prophylaxis Current Visit: Yes Status: Acute Plan to address problem: GI prophylaxis DVT prophylaxis with Lovenox subcu SCDs bilateral extremities while in bed History Interval history: This is a 64-year-old female presented to the emergency department on 01/17 via EMS with complaints of shortness of breath and cough over the past 10 days with fatigue. EMS found her to be hypoxic on arrival and was placed on a nonrebreat her however on triage she was found to have SPO2 of 84%. Work-up in the emergency department included a CXR which showed scattered diffuse bilateral pulmonary opacities, elevated D-dimer 754, hyponatremia at 135, elevated COVID- 19 markers with a normal procalcitonin. Patient was weaned to room air and ID requested an ambulatory SPO2 with possible discharge today. Today her insulin 70/30 was increased due to hyperglycemia. 01/18: hypokalemic at 3.2 and has slight metabolic acidosis at CO2 20. Her hemoglobin A1c resulted at 9.4 and she was initiated on 2 units of Novolin 70/30 twice daily. Today her COVID-19 PCR resulted as positive. Patient is still on supplemental oxygenation at this time. Infectious disease initiated her on remdesivir therapy today. Hospitalist Physical - Physical exam Narrative exam: Exam not conducted efforts to conserve PPE and decrease exposure - Constitutional Vitals: Temp Pulse Resp BP Pulse Ox 98.1 F 83 17 132/81 94 01/20/20 12:41 01/20/20 12:41 01/20/20 12:41 01/20/20 12:41 01/20/20 12:41 General appearance: Present: well-nourished HEART Score - HEART Score Troponin: Troponin T < 0.010 ng/mL (0.00-0.029) 01/18/20 14:15 Results - Labs CBC & Chem 7: 01/19/20 15:34 01/20/20 08:40 Labs: Laboratory Last Values WBC 10.1 K/mm3 (4.5-11.0) 01/19/20 15:34 RBC 5.41 M/mm3 (3.65-5.03) H 01/19/20 15:34 Hgb 14.3 gm/dl (10.1-14.3) 01/19/20 15:34 Hct 43.5 % (30.3-42.9) H 01/19/20 15:34 MCV 81 fl (79-97) 01/19/20 15:34 MCH 27 pg (28-32) L 01/19/20 15:34 MCHC 33 % (30-34) 01/19/20 15:34 RDW 12.8 % (13.2-15.2) L 01/19/20 15:34 Plt Count 323 K/mm3 (140-440) 01/19/20 15:34 Lymph % (Auto) Glassware Maker 01/19/20 15:34 [place] % (Auto) Glassware Maker 01/19/20 15:34 Eos % (Auto) Glassware Maker 01/19/20 15:34 Baso % (Auto) Glassware Maker 01/19/20 15:34 Lymph # (Auto) Glassware Maker 01/19/20 15:34 [place] # (Auto) Glassware Maker 01/19/20 15:34 Eos # (Auto) Glassware Maker 01/19/20 15:34 Baso # (Auto) Glassware Maker 01/19/20 15:34 Seg Neutrophils % Glassware Maker 01/19/20 15:34 Seg Neutrophils # Glassware Maker 01/19/20 15:34 D-Dimer 754.44 ng/mlDDU (0-234) H 01/18/20 14:15 Sodium 141 mmol/L (137-145) 01/20/20 08:40 Potassium 4.0 mmol/L (3.6-5.0) D 01/20/20 08:40 Chloride 104.4 mmol/L (98-107) 01/20/20 08:40 Carbon Dioxide 28 mmol/L (22-30) D 01/20/20 08:40 Anion Gap 13 mmol/L 01/20/20 08:40 BUN 14 mg/dL (7-17) 01/20/20 08:40 Creatinine 0.8 mg/dL (0.6-1.2) 01/20/20 08:40 Estimated GFR > 60 ml/min 01/20/20 08:40 BUN/Creatinine Ratio 18 % 01/20/20 08:40 Glucose 169 mg/dL (65-100) H 01/20/20 08:40 POC Glucose 151 mg/dL (70-105) H 01/20/20 12:40 Hemoglobin A1c 9.4 % (4-6) H 01/19/20 15:34 Calcium 8.2 mg/dL (8.4-10.2) L 01/20/20 08:40 Ferritin 1542.0 ng/mL (10.0-200.0) H 01/18/20 14:15 Total Bilirubin 0.20 mg/dL (0.1-1.2) 01/19/20 15:34 AST 34 units/L (5-40) 01/19/20 15:34 ALT 34 units/L (7-56) 01/19/20 15:34 Alkaline Phosphatase 80 units/L (35-129) 01/19/20 15:34 Lactate Dehydrogenase 608 units/L (91-180) H 01/18/20 14:15 Troponin T < 0.010 ng/mL (0.00-0.029) 01/18/20 14:15 C-Reactive Protein 7.80 mg/dL (0.00-1.30) H 01/18/20 14:15 NT-Pro-B Natriuret Pep 50.47 pg/mL (0-900) 01/18/20 14:15 Total Protein 6.9 g/dL (6.3-8.2) 01/19/20 15:34 Albumin 3.0 g/dL (3.9-5) L 01/19/20 15:34 Albumin/Globulin Ratio 0.8 % 01/19/20 15:34 Procalcitonin < 0.05 ng/mL (<0.15) 01/18/20 14:15 Coronavirus (PCR) Positive (Negative) A 01/19/20 Unknown Microbiology: Microbiology 01/18/20 14:15 Peripheral/Venous Blood Culture - Preliminary NO GROWTH AFTER 48 HOURS 01/18/20 14:15 Peripheral/Venous Blood Culture - Preliminary NO GROWTH AFTER 48 HOURS Moore/IV: Voiding Method Toilet IV Catheter Type [Right INT / Saline Lock Antecubital] Active Medications - Current Medications Current Medications: Generic Name Dose Route Start Last Admin Trade Name Freq PRN Reason Stop Dose Admin Acetaminophen 650 mg 01/18/20 17:30 01/19/20 17:47 Tylenol PO 650 mg Q4H PRN Administration Pain MILD(1-3)/Fever >100.5/URBANO Amlodipine Besylate 2.5 mg 01/20/20 10:00 01/20/20 09:24 Amlodipine PO 2.5 mg QDAY FREDERICK Administration Dexamethasone 6 mg 01/19/20 10:00 01/20/20 09:25 Decadron PO 01/27/20 10:01 6 mg DAILY FREDERICK Administration Dextrose 50 ml 01/19/20 17:07 D50w (25gm) Syringe IV Q30MIN PRN Hypoglycemia Protocol Enoxaparin Sodium 50 mg 01/19/20 10:00 01/20/20 09:25 Enoxaparin SUB-Q 50 mg Q12HR FREDERICK Administration Famotidine 20 mg 01/18/20 22:00 01/20/20 09:24 Pepcid PO 20 mg BID FREDERICK Administration Guaifenesin 10 ml 01/19/20 12:06 01/19/20 14:17 Guaifenesin Dm Syrup PO 10 ml TID PRN Administration Cough Hydromorphone HCl 0.5 mg 01/18/20 17:30 Dilaudid IV Q3H PRN Pain , Severe (7-10) REMDESIVIR 100 mg/ Sodium 250 mls @ 500 mls/hr 01/20/20 21:00 Chloride IV 01/23/20 21:29 Q24HR@2100 FREDERICK Insulin Human Isoph/Insulin Regular 4 unit 01/20/20 08:00 01/20/20 09:57 Humulin 70/30 SUB-Q 4 unit BIDDIAB FREDERICK Administration Insulin Human Lispro 0 unit 01/19/20 22:00 01/20/20 13:36 Humalog SUB-Q 2 unit ACHS FREDERICK Administration Protocol Ondansetron HCl 4 mg 01/18/20 17:30 Zofran IV Q8H PRN Nausea And Vomiting Oxycodone/Acetaminophen 1 tab 01/18/20 18:00 Percocet 5/325 PO Q6H PRN Pain, Moderate (4-6) Sodium Chloride 10 ml 01/18/20 22:00 01/20/20 09:26 Sodium Chloride Flush Syringe 10 Ml IV 10 ml BID FREDERICK Administration Sodium Chloride 10 ml 01/18/20 18:00 Sodium Chloride Flush Syringe 10 Ml IV PRN PRN LINE FLUSH Sodium Chloride 50 ml 01/19/20 17:00 01/19/20 17:05 Nacl 0.9% IV 01/23/20 21:01 50 ml Q24HR@2100 FREDERICK Administration Nutrition/Malnutrition Assess - Dietary Evaluation Nutrition/Malnutrition Findings: Nutrition Notes Start: 01/20/20 13:31 Freq: Status: Active Protocol: Document 01/20/20 13:31 EN (Rec: 01/20/20 13:45 EN [email or web address]) Co-Sign 01/20/20 13:31 LP Nutrition Notes Need for Assessment generated from: MD Order,Education Initial or Follow up Assessment Current Diagnosis Diabetes Other Pertinent Diagnosis Bilateral pneumonia, COVID +, Transaminitis, Malnutrition Current Diet Consistent CHO with Glucerna BID Labs/Tests Glu 169 Pertinent Medications Humulin Height 5 ft 3 in Weight 53 kg [place] Body Weight (kg) 52.27 BMI 20.7 Weight Status Appropriate Subjective/Other Information RD conuslted for Consistent CHO diet education and ONS. RD unable to see pt d/t COVID + status. Pt is Bangladeshi speaking and RD unable to use rn pediatric icu phone to call the patient's room. RD unable to reach RN x2. Per chart, pt consuming 50% of meals. Burn Absent Trauma Absent Food Allergy No Current % PO Fair (50-74%) Minimum of two criteria No physical signs of malnutrition #1 Nutrition Diagnosis Inadequate oral intake Etiology COVID-19 and bilateral pneumonia As Evidenced by Signs and Symptoms pt consuming 50% of meals Is patient on ventilator? No Is Patient Ambulatory and/or Out of Bed Yes REE-([facility]-ambulatory/OOB) [ 1363.869 [id number]] Kcal/Kg value to use for calculation 29 Approximate Energy Requirements Using 1537 kcal/Kg Calculation Used for Recommendations Kcal/kg Additional Notes Protein: 0.8-1.0 g/kg (42-53g) Fluid: 1 ml/kcal Nutrition Intervention Change Diet Order: Continue Consistent CHO with Glucerna BID Add Supplement/Snack (indicate name/kcal Glucerna BID /protein ) Provides kCal: 440 Provides Protein (gm) 20 Goal #1 Meet 75% of energy and protein needs through PO and ONS Anticipated Discharge Needs: Consistent CHO diet Follow-Up By: 01/24/20 Additional Comments F/u for intakes, ONS tolerance and nutrition hx
--- NOTE | 2020-01-20 16:45 | Discharge Summary ---
Providers - Providers Date of Admission: 01/18/20 14:58 Attending physician: GRIFFIN WESTON 01/19/20 07:46 Consult to Physician [CONS] Routine Comment: Consulting Provider: LU ROMERO Physician Instructions: Reason For Exam: Bilateral pneumonia 01/19/20 17:08 Consult to Dietitian/Nutrition [CONS] Routine Physician Instructions: Reason For Exam: Reason for Consult: Diet education Primary care physician: [employer] Hospitalization Condition: Stable Hospital course: This is a 64-year-old female presented to the emergency department on 01/17 via EMS with complaints of shortness of breath and cough over the past 10 days with fatigue. EMS found her to be hypoxic on arrival and was placed on a nonrebreather however on triage she was found to have SPO2 of 84%. Work-up in the emergency department included a CXR which showed scattered diffuse bilateral pulmonary opacities, elevated D-dimer 754, hyponatremia at 135, elevated COVID- 19 markers with a normal procalcitonin. On 01/18 patient was hypokalemic at 3.2 and has slight metabolic acidosis at CO2 20, her hemoglobin A1c resulted at 9.4 and she was initiated on 2 units of Novolin 70/30 twice daily. Her COVID-19 PCR resulted as positive and Infectious disease initiated her on remdesivir therapy. Patient was weaned to room air and ID requested an ambulatory SPO2 with possible discharge yesterday. Patient will need to follow-up with her primary care physician within 3 days of discharge. She will be discharged with home oxygenation. Assessment and Plan - Patient Problems (1) Pneumonia due to 2019 novel coronavirus Current Visit: Yes Status: Acute Plan to address problem: 01/17 CXR shows scattered diffuse bilateral pulmonary opacities 01/18 COVID-19 PCR positive Infectious disease consulted S/p azithromycin and Rocephin which were discontinued given normal procalcitonin 01/18 initiated on remdesivir therapy by ID (01/18 through 01/22) however the patient remains on room air S/p dexamethasone 10 mg in the ED Dexamethasone 6 mg p.o. daily for 9 days (01/18 through 01/26) (2) Elevated d-dimer Current Visit: Yes Status: Acute Plan to address problem: Presented with a D-dimer of 754.44 Anticoagulation per COVID-19 protocol Trend D-dimer (3) Respiratory failure with hypoxia Current Visit: Yes Status: Acute Qualifiers: Chronicity: acute Qualified Code(s): J96.01 - Acute respiratory failure with hypoxia Plan to address problem: Presented with hypoxia with SPO2 into the 80s Patient will be discharged with home oxygen Pulmonary hygiene (4) Malnutrition Current Visit: Yes Status: Chronic Qualifiers: Protein-calorie malnutrition severity: moderate Plan to address problem: Nutrition consult Caloric supplementation with every meal (5) Hypokalemia Current Visit: Yes Status: Resolved Plan to address problem: 01/18 potassium 3.2 Supplemented Trend BMP supplement as needed 01/19 potassium 4 (6) Diabetes Current Visit: Yes Status: Acute Plan to address problem: 01/18 hemoglobin A1c 9.1 Follow-up with your primary care physician within 1 to 2 weeks of discharge Continue consistent carbohydrate diet upon discharge Accu-Cheks per PCP instructions Increase physical activity and dietary modifications on outpatient (7) DVT prophylaxis Current Visit: Yes Status: Acute Plan to address problem: Discharged with 2.5mg of Eliquis BID for 30 days Disposition: - TO HOME OR SELFCARE Time spent for discharge: 35 Core Measure Documentation - Palliative Care Palliative Care/ Comfort Measures: Not Applicable - Core Measures Any of the following diagnoses?: none Exam - Physical Exam Narrative exam: General appearance: Present: well-nourished - EENT Eyes: Present: PERRL, EOM intact ENT: hearing intact, clear oral mucosa - Neck Neck: Present: supple, normal ROM - Respiratory Respiratory effort: normal Respiratory: bilateral: diminished - Cardiovascular Rhythm: regular Heart Sounds: Present: S1 & S2. Absent: systolic murmur, diastolic murmur - Extremities Extremities: no ischemia, pulses intact, pulses symmetrical, No edema, normal temperature, normal color, Full ROM - Abdominal General gastrointestinal: soft, non-tender, non-distended, normal bowel sounds - Integumentary Integumentary: Present: clear, dry - Psychiatric Psychiatric: appropriate mood/affect, cooperative - Neurologic Neurologic: CNII-XII intact, no focal deficits, moves all extremities - Constitutional Vitals: Temp Pulse Resp BP Pulse Ox 98.1 F 83 17 132/81 94 01/20/20 12:41 01/20/20 12:41 01/20/20 12:41 01/20/20 12:41 01/20/20 12:41 Plan Activity: advance as tolerated Diet: diabetic Special Instructions: record blood sugar diary Additional Instructions: Present to nearest emergency room or contact primary care physician if experience worsening symptoms. Follow-up with your primary care physician within 1 to 2 weeks of discharge. Follow up with: PRIMARY CARE, [Primary Care Provider] - 7 Days Prescriptions: RX: amLODIPine 2.5 mg PO QDAY #30 tablet RX: Dexamethasone [Decadron] 6 mg PO DAILY #7 tablet Apixaban [Eliquis] 2.5 mg PO BID #60 tablet RX: guaiFENesin DM [Guaifenesin Dm Syrup] 10 ml PO TID PRN #120 oral.liqd PRN Reason: Cough Other Discharge Orders: Glucometer (Amb) Location: None Selected Glucometer supplies[Amb] Location: None Selected
[2020-01-20] MEDS ORDERED: REMDESIVIR 100 MG in SODIUM CHLORIDE 0.9% 250ML 250 ML IV SCH (21:00)
[2020-01-20] MEDS: SODIUM CHLORIDE 0.9% 50 ML IVPB IV SCH (22:08)
[2020-01-21] MEDS: INSULIN LISPRO 100 UNIT/ML VIAL 3 mL SUB-Q SCH ×3 (10:19→19:29)
[2020-01-21] MEDS: FAMOTIDINE 20 MG TAB PO SCH (10:21)
[2020-01-21] MEDS: amLODIPine 5 MG TAB PO SCH (10:21)
[2020-01-21] MEDS: DEXAMETHASONE 4 MG TAB PO SCH (10:21)
[2020-01-21] MEDS: ENOXAPARIN 60 MG/0.6 ML INJ SUB-Q SCH (10:21)
[2020-01-21] MEDS: INSULIN NPH/REGULAR 70/30 INJ SUB-Q SCH (14:24)
[2020-01-21 18:08] VITALS: BP 128/84
== END 2020-01-21 18:30 | disposition home or self-care (01) | DRG 177 ==
LOC: ED 12:08 → 3A 14:58
PROVIDERS: ADMIT Internal Medicine; ATTEND Internal Medicine
PROC: XW033E5 Introduction of Remdesivir Anti-infective into Peripheral Vein, Percutaneous Approach, New Technology Group 5 (ICD-10-PCS; principal; 2020-01-19)
DX: U07.1 COVID-19 (principal); J96.01 Acute respiratory failure with hypoxia; J12.89 Other viral pneumonia; E44.0 Moderate protein-calorie malnutrition; E87.1 Hypo-osmolality and hyponatremia; R79.1 Abnormal coagulation profile; R74.01 Elevation of levels of liver transaminase levels; E87.6 Hypokalemia; E11.65 Type 2 diabetes mellitus with hyperglycemia
CPT/HCPCS: 36415; 71045; 80048; 80053; 82728; 82947; 82962; 83036; 83520; 83615; 83880; 84145; 84484; 85025; 85379; 86140; 87040; 96365; 96367; 96375; G0378; J0456; J0696; J1100; J1650; J1815; J7050; J8540; U0003